=== PATIENT | female | born 1970 | race Caucasian/White ===

== ENCOUNTER 2017-03-27 04:20 | Emergency (ER) | payer MEDICAID ==
[~2017-03-27] VITALS: Ht 165.1 cm; Wt 56.0 kg
[2017-03-27] MEDS ORDERED: SODIUM CHLORIDE 0.9% 1,000 ML IV ONE (04:57)
[2017-03-27] MEDS ORDERED: SODIUM CHLORIDE 0.9% 1,000ML IVBOLUS ONE (05:00)
[2017-03-27] MEDS ORDERED: ONDANSETRON 2MG/ML, 2ML IVPush ONE (05:00)
[2017-03-27] MEDS ORDERED: ONDANSETRON 2MG/ML, 2ML ONE (05:07)
[2017-03-27 05:43] LABS: BLOOD UREA NITROGEN 11 mg/dL (7-18)
[2017-03-27 06:38] VITALS: BP 121/78
== END 2017-03-27 06:38 | disposition home or self-care (01) ==
LOC: ED 06:32
DX: S05.12XA Contusion of eyeball and orbital tissues, left eye, initial encounter (principal); S05.11XA Contusion of eyeball and orbital tissues, right eye, initial encounter; F10.20 Alcohol dependence, uncomplicated; F15.20 Other stimulant dependence, uncomplicated; R11.2 Nausea with vomiting, unspecified; X58.XXXA Exposure to other specified factors, initial encounter; Y93.89 Activity, other specified; Y92.89 Other specified places as the place of occurrence of the external cause; Y99.8 Other external cause status
CPT/HCPCS: 36415; 70450; 80048; 82040; 84703; 85025; 96361; 96374; 99285; J2405; J7030

== ENCOUNTER 2017-04-28 10:07 | Emergency (ER) | payer MEDICAID ==
[2017-04-28] MEDS ORDERED: LORazepam 1MG TABLET PO ONE (11:00)
[2017-04-28] MEDS ORDERED: LORazepam 1MG TABLET ONE (11:23)
[2017-04-28] MEDS ORDERED: PLEASE ENTER HEIGHT AND WEIGHT MC SCH (11:30)
[2017-04-28 13:04] VITALS: BP 136/87
== END 2017-04-28 13:03 | disposition home or self-care (01) ==
LOC: ED 12:57
DX: F41.1 Generalized anxiety disorder (principal)
CPT/HCPCS: 99283

== ENCOUNTER 2017-05-08 02:29 | Observation (INO) | payer MEDICAID ==
[~2017-05-08] VITALS: Ht 165.1 cm; Wt 57.0 kg
[2017-05-08] MEDS ORDERED: LORazepam 1MG TABLET PO ONE ×2 (03:00→06:30)
[2017-05-08 03:34] LABS: BLOOD UREA NITROGEN 13 mg/dL (7-18)
[2017-05-08 03:37] LABS: ACETAMINOPHEN < 2 mcg/mL (10-30)
[2017-05-08 03:53] LABS: DAU SCREEN DISCLAIMER
[2017-05-08] MEDS ORDERED: CIPROFLOXACIN 500 MG TABLET ONE (04:11)
[2017-05-08] MEDS ORDERED: LORazepam 1MG TABLET ONE ×2 (04:26→06:21)
[2017-05-08] MEDS ORDERED: CIPROFLOXACIN 500 MG TABLET PO ONE (04:30)
[2017-05-08 05:53] VITALS: BP 120/81
[2017-05-08] MEDS ORDERED: ONDANSETRON ODT 4 MG PO PRN (07:00)
[2017-05-08] MEDS ORDERED: ENOXAPARIN 40 MG/0.4 ML SQ SCH (07:00)
[2017-05-08] MEDS ORDERED: LORazepam 1MG TABLET PO PRN (07:00)
[2017-05-08] MEDS ORDERED: LORazepam 2 MG/ML, 1ML IM PRN (08:30)
[2017-05-08] MEDS ORDERED: CEFDINIR 300 MG CAPSULE PO SCH (09:00)
[2017-05-08] MEDS ORDERED: MULTIVITAMIN 1 TABLET PO SCH (09:00)
[2017-05-08] MEDS ORDERED: THIAMINE 100MG TABLET PO SCH (09:00)
[2017-05-08] MEDS ORDERED: FOLIC ACID 1 MG TABLET PO SCH (09:00)
[2017-05-08] MEDS ORDERED: ZIPRASIDONE 20 MG INJ IM PRN (09:30)
== END 2017-05-08 11:10 | disposition home or self-care (01) ==
LOC: ED 02:51 → EDIP 04:38 → 3E 07:41
PROVIDERS: ADMIT Internal Medicine; ATTEND Internal Medicine
DX: F23 Brief psychotic disorder (principal); F15.10 Other stimulant abuse, uncomplicated; F41.0 Panic disorder [episodic paroxysmal anxiety]; F22 Delusional disorders; F41.1 Generalized anxiety disorder; Z91.83 Wandering in diseases classified elsewhere
CPT/HCPCS: 36415; 80048; 80307; 80329; 81001; 82040; 84703; 85025; 87086; 96372; 99285; G0378; J2060; G0480

== ENCOUNTER 2017-09-21 00:27 | Emergency (ER) | payer MEDICAID ==
[~2017-09-21] VITALS: Ht 162.6 cm; Wt 55.1 kg
[2017-09-21 00:28] VITALS: BP 105/71
[2017-09-21] MEDS ORDERED: SERT20OR PO (00:55)
== END 2017-09-21 01:24 | disposition home or self-care (01) ==
LOC: ED 01:01
DX: F15.10 Other stimulant abuse, uncomplicated (principal); F41.1 Generalized anxiety disorder; Z77.22 Contact with and (suspected) exposure to environmental tobacco smoke (acute) (chronic); Z59.0 Homelessness
CPT/HCPCS: 99281

== ENCOUNTER 2018-01-23 05:43 | Emergency (ER) | payer MEDICAID ==
[~2018-01-23] VITALS: Ht 177.8 cm; Wt 70.0 kg
[~2018-01-23 05:43] MED LIST: SERT20OR PO
[2018-01-23 05:45] VITALS: BP 134/86
[2018-01-23 06:27] LABS: BASOPHILS # (AUTO) 0.03 x10^3/uL (0-0.1); BASOPHILS % (AUTO) 0 % (0-1); EOSINOPHILS % (AUTO) 0 % (1-7); LYMPHOCYTES # (AUTO) 1.78 x10^3/uL (1-3.4); LYMPHOCYTES % (AUTO) 19 % (22-44); MD NO; MEAN CORPUSCULAR HEMOGLOBIN 30.8 pg (27.0-34.8); MEAN CORPUSCULAR VOLUME 90.5 fL (80-100); MEAN PLATELET VOLUME 7.8 fL (7.4-10.4); MONOCYTES # (AUTO) 0.25 x10^3/uL (0.2-0.8); MONOCYTES % (AUTO) 3 % (2-9); NEUTROPHILS # (AUTO) 7.46 x10^3/uL (1.8-6.8); NEUTROPHILS % (AUTO) 78 % (42-75); PLATELET COUNT 266 x10^3/uL (130-400); RED BLOOD COUNT 4.42 x10^6/uL (3.82-5.3); RED CELL DISTRIBUTION WIDTH 13.1 % (9.6-15.2)
[2018-01-23 06:36] LABS: INTERNATIONAL NORMALIZED RATIO 0.94 (0.93-1.1); PROTHROMBIN TIME 9.8 Seconds (9.6-11.5)
[2018-01-23 06:42] LABS: ALANINE AMINOTRANSFERASE 38 U/L (12-78); ALBUMIN 4.4 g/dL (3.4-5.0); ANION GAP 16 mmol/L (5-15); CALCIUM 8.3 mg/dL (8.5-10.1); CHLORIDE 106 mmol/L (98-107); CREATININE 0.92 mg/dL (0.55-1.02)
[2018-01-23 06:47] LABS: ALKALINE PHOSPHATASE 50 U/L (45-117); BILIRUBIN,TOTAL 1.2 mg/dL (0.2-1.0); TOTAL PROTEIN 7.6 g/dL (6.4-8.2); TROPONIN I < 0.015 ng/mL (0.000-0.045)
[2018-01-23] MEDS ORDERED: ONDANSETRON ODT 4 MG ONE (07:27)
[2018-01-23] MEDS ORDERED: ONDANSETRON ODT 4 MG PO ONE (07:30)
== END 2018-01-23 07:51 | disposition home or self-care (01) ==
LOC: ED 07:05
DX: R00.2 Palpitations (principal); G31.2 Degeneration of nervous system due to alcohol; I10 Essential (primary) hypertension; E11.9 Type 2 diabetes mellitus without complications; Z79.899 Other long term (current) drug therapy; Z86.73 Personal history of transient ischemic attack (TIA), and cerebral infarction without residual deficits; R79.1 Abnormal coagulation profile
CPT/HCPCS: 36415; 70450; 71045; 80053; 80307; 83735; 84443; 84484; 85025; 85610; 85730; 93005; 99285; Q0162

== ENCOUNTER 2018-01-26 02:51 | Emergency (ER) | payer MEDICAID ==
[~2018-01-26] VITALS: Ht 165.1 cm; Wt 63.1 kg
[2018-01-26 02:52] VITALS: BP 150/80
[2018-01-26] MEDS ORDERED: ONDANSETRON ODT 4 MG ONE (03:55)
[2018-01-26] MEDS ORDERED: ONDANSETRON ODT 4 MG PO ONE (04:00)
== END 2018-01-26 04:06 | disposition home or self-care (01) ==
LOC: ED 04:00
DX: S60.011A Contusion of right thumb without damage to nail, initial encounter (principal); R11.0 Nausea; F10.10 Alcohol abuse, uncomplicated; E11.9 Type 2 diabetes mellitus without complications; I10 Essential (primary) hypertension; X31.XXXA Exposure to excessive natural cold, initial encounter; Y93.89 Activity, other specified; Y92.488 Other paved roadways as the place of occurrence of the external cause; Y99.8 Other external cause status; Z59.0 Homelessness
CPT/HCPCS: 11730; 99283; Q0162

== ENCOUNTER 2018-04-06 01:04 | Emergency (ER) | payer MEDICAID ==
[~2018-04-06] VITALS: Ht 162.6 cm; Wt 60.0 kg
[2018-04-06 01:20] VITALS: BP 134/82
== END 2018-04-06 01:37 | disposition left against medical advice (07) ==
LOC: ED 01:31
DX: F10.229 Alcohol dependence with intoxication, unspecified (principal); E11.9 Type 2 diabetes mellitus without complications; I10 Essential (primary) hypertension; F41.1 Generalized anxiety disorder
CPT/HCPCS: 99283

== ENCOUNTER 2018-04-26 13:51 | Emergency (ER) | payer MEDICAID ==
[~2018-04-26] VITALS: Ht 162.6 cm; Wt 55.0 kg
[2018-04-26 13:54] VITALS: BP 119/85
== END 2018-04-26 16:49 | disposition home or self-care (01) ==
LOC: ED 16:45
DX: S92.351A Displaced fracture of fifth metatarsal bone, right foot, initial encounter for closed fracture (principal); E11.9 Type 2 diabetes mellitus without complications; I10 Essential (primary) hypertension; F32.9 Major depressive disorder, single episode, unspecified; F41.9 Anxiety disorder, unspecified; X58.XXXA Exposure to other specified factors, initial encounter; Y93.01 Activity, walking, marching and hiking; Y92.89 Other specified places as the place of occurrence of the external cause; Y99.8 Other external cause status
CPT/HCPCS: 29515; 99284

== ENCOUNTER 2018-06-20 07:17 | Emergency (ER) | payer MEDICAID ==
[~2018-06-20] VITALS: Ht 165.1 cm; Wt 56.8 kg
[2018-06-20 08:48] LABS: CULTURE INDICATED? YES; MICROSCOPIC INDICATED
[2018-06-20 09:10] LABS: CLUE CELLS NONE SEEN (NONE SEEN); WET PREP WBCS MANY (FEW)
[2018-06-20] MEDS ORDERED: metroNIDAZOLE 500 MG TABLET ONE (09:29)
[2018-06-20] MEDS ORDERED: metroNIDAZOLE 500 MG TABLET PO ONE (09:30)
[2018-06-20 09:39] VITALS: BP 142/91
== END 2018-06-20 09:41 | disposition home or self-care (01) ==
LOC: ED 08:14
DX: A59.01 Trichomonal vulvovaginitis (principal); N30.00 Acute cystitis without hematuria
CPT/HCPCS: 81001; 87086; 87210; 87491; 87591; 87808; 99284; Q0177

== ENCOUNTER 2018-08-21 01:00 | Emergency (ER) | payer MEDICAID ==
[~2018-08-21] VITALS: Ht 165.1 cm; Wt 57.2 kg
[2018-08-21 01:06] VITALS: BP 100/71
== END 2018-08-21 02:19 | disposition left against medical advice (07) ==
LOC: ED 02:11
DX: M79.671 Pain in right foot (principal); G89.29 Other chronic pain; Z72.9 Problem related to lifestyle, unspecified; F32.9 Major depressive disorder, single episode, unspecified; E11.9 Type 2 diabetes mellitus without complications; F41.1 Generalized anxiety disorder
CPT/HCPCS: 99284

== ENCOUNTER 2018-09-15 14:17 | Emergency (ER) | payer MEDICAID ==
[~2018-09-15] VITALS: Ht 165.1 cm; Wt 52.7 kg
[2018-09-15 14:21] VITALS: BP 148/84
== END 2018-09-15 15:04 | disposition home or self-care (01) ==
LOC: ED 14:41
DX: L03.114 Cellulitis of left upper limb (principal); F32.9 Major depressive disorder, single episode, unspecified; E11.9 Type 2 diabetes mellitus without complications; I10 Essential (primary) hypertension; F41.1 Generalized anxiety disorder
CPT/HCPCS: 99283

== ENCOUNTER 2018-09-19 15:16 | Emergency (ER) | payer MEDICAID ==
[~2018-09-19] VITALS: Ht 165.1 cm; Wt 54.0 kg
[2018-09-19 15:28] VITALS: BP 125/86
== END 2018-09-19 17:10 | disposition left against medical advice (07) ==
LOC: ED 17:04
DX: G89.11 Acute pain due to trauma (principal); M79.671 Pain in right foot; E11.9 Type 2 diabetes mellitus without complications; I10 Essential (primary) hypertension; F29 Unspecified psychosis not due to a substance or known physiological condition; Z76.0 Encounter for issue of repeat prescription; Z98.890 Other specified postprocedural states
CPT/HCPCS: 99283

== ENCOUNTER 2018-10-02 06:55 | Emergency (ER) | payer MEDICAID ==
[~2018-10-02] VITALS: Ht 160 cm; Wt 55.0 kg
[2018-10-02 08:02] LABS: RAPID INFLUENZA A Negative (Negative); RAPID INFLUENZA B Negative (Negative)
[2018-10-02 09:30] VITALS: BP 115/68
[2018-10-02] MEDS ORDERED: DEXAMETHASONE 4 MG/ML, 1ML PO ONE (09:30)
== END 2018-10-02 09:36 | disposition home or self-care (01) ==
LOC: ED 09:30
DX: J00 Acute nasopharyngitis [common cold] (principal); B34.9 Viral infection, unspecified; E11.9 Type 2 diabetes mellitus without complications; I10 Essential (primary) hypertension; F41.0 Panic disorder [episodic paroxysmal anxiety]; F32.9 Major depressive disorder, single episode, unspecified; Z87.42 Personal history of other diseases of the female genital tract; Z87.448 Personal history of other diseases of urinary system; Z72.9 Problem related to lifestyle, unspecified
CPT/HCPCS: 71046; 87081; 87400; 87880; 99284

== ENCOUNTER 2018-12-02 18:20 | Emergency (ER) | payer MEDICAID ==
[~2018-12-02] VITALS: Ht 165.1 cm; Wt 54.7 kg
[~2018-12-02 18:20] MED LIST changes: +ESCI20TA10 PO; +LEVO750T26 PO
[2018-12-02 18:24] VITALS: BP 124/74
--- NOTE | 2018-12-02 20:09 | NUR ---
pt up for discharge. pt stating " why the fuck am i getting discharged, i have a broken foot." pt up ambulating on bilateal feet. pt up yelling " i want to be admitted, im going to go outside and check myself back in." pt angry. security called and security escorted pt outside.
== END 2018-12-02 20:12 | disposition home or self-care (01) ==
LOC: ED 20:06
DX: M79.671 Pain in right foot (principal); F10.129 Alcohol abuse with intoxication, unspecified; W22.8XXA Striking against or struck by other objects, initial encounter; Y93.89 Activity, other specified; Y92.89 Other specified places as the place of occurrence of the external cause; Y99.8 Other external cause status
CPT/HCPCS: 99283

== ENCOUNTER 2018-12-04 09:04 | Emergency (ER) | payer MEDICAID ==
[~2018-12-04] VITALS: Ht 165.1 cm; Wt 54.0 kg
[2018-12-04 09:07] VITALS: BP 127/77
== END 2018-12-04 09:37 | disposition left against medical advice (07) ==
LOC: ED 09:37
DX: M79.672 Pain in left foot (principal); Z53.21 Procedure and treatment not carried out due to patient leaving prior to being seen by health care provider

== ENCOUNTER 2018-12-07 20:31 | Emergency (ER) | payer MEDICAID ==
[~2018-12-07] VITALS: Ht 165.1 cm; Wt 57.0 kg
[2018-12-07 20:34] VITALS: BP 139/87
--- NOTE | 2018-12-07 20:53 | NUR ---
PT NOT IN [facility] ROOM.
== END 2018-12-07 21:07 | disposition left against medical advice (07) ==
LOC: ED 20:54
DX: L25.9 Unspecified contact dermatitis, unspecified cause (principal); M79.642 Pain in left hand; M79.641 Pain in right hand; Z59.0 Homelessness
CPT/HCPCS: 99281

== ENCOUNTER 2018-12-08 12:39 | Emergency (ER) | payer MEDICAID ==
--- NOTE | 2018-12-08 12:45 | NUR ---
pt bib remsa for meth and alcohol intoxication. pt a&ox4. pt up ambulatory. dr. marion and I at bedside. pt stating she did not want to stay. pt denies suicide and denies homicide. pt up ambulatory and stable on feet.
== END 2018-12-08 12:48 | disposition left against medical advice (07) ==
LOC: ED 12:45
DX: Z53.21 Procedure and treatment not carried out due to patient leaving prior to being seen by health care provider (principal)